=== PATIENT | female | born 1950 | race Hispanic/Latino ===

== ENCOUNTER → 2020-01-14 | Outpatient (CLI) | payer MEDICARE ==
[2020-01-14 15:36] LABS: BASOPHILS % 0.5 % (0.0-1.0); EOSINOPHILS # (AUTO) 0.1 (0.0-0.4); HEMOGLOBIN 11.2 g/dL (12.0-16.0); LYMPHOCYTES # (AUTO) 1.7 (1.0-3.2); MEAN CORPUSCULAR VOLUME 90.7 fL (81-99); MONOCYTES # (AUTO) 0.3 (0.2-0.8); MONOCYTES % 4.8 % (4.4-11.3); NEUTROPHILS # (AUTO) 4.5 (2.1-6.9); NEUTROPHILS % 67.4 % (38.7-80.0); PLATELET COUNT 252 x10e3/uL (140-360); RED BLOOD COUNT 3.86 x10e6/uL (3.6-5.1); RED CELL DISTRIBUTION WIDTH 13.4 % (11.7-14.4)
--- NOTE | 2020-01-14 15:45 | Diagnostic Imaging Report ---
EXAM: CHEST 2 VIEWS DATE: 01/14/2020 3:09 PM INDICATION: Cough COMPARISON: None FINDINGS: The trachea is midline. The lungs are symmetrically expanded without evidence for large focal consolidation, pneumothorax, or significant pleural effusion. The cardiomediastinal silhouette and pulmonary vasculature are within normal limits. Degenerative changes noted of the visualized spine. No acute osseous abnormality is identified. The surrounding soft tissues are unremarkable. IMPRESSION: No acute cardiopulmonary process identified. Signed by: Dr. Jourdan Foster MD on 01/14/2020 3:41 PM
== END ==
LOC: RAD 14:57
PROVIDERS: ATTEND Emergency Medicine
DX: R05 Cough (principal)
CPT/HCPCS: 36415; 71046; 83880; 85025

== ENCOUNTER → 2020-01-19 | Outpatient (CLI) | payer MEDICARE ==
--- NOTE | 2020-01-19 13:49 | Diagnostic Imaging Report ---
EXAM: BONE MINERAL DENSITY HISTORY: Screening COMPARISON: None DISCUSSION: Evaluation of the left hip and lumbar spine was performed utilizing DEXA Hologic bone densitometer. The study is technically adequate. The patient's fracture risk is compared to an age-matched control. The patient denies prior surgery/fracture of the spine, hips or forearm. Left hip femoral neck bone mineral density: 0.712 g/cm2, T-score is -1.4, Z-score is 0.2. Left hip total bone mineral density: 0.756 g/cm2, T-score is -1.5, Z-score is -0.3. Lumbar spine total bone mineral density: 0.832 gm/cm2, T-score is -2, Z-score is 0. Impression: Bone mineralization by WHO Classification is osteopenia, the fracture risk is increased. The estimated 10 year risk of a major osteoporotic fracture is calculated as 16%. Signed by: Jin Carey MD on 01/19/2020 1:45 PM
== END ==
LOC: DX 13:02
PROVIDERS: ATTEND Emergency Medicine
DX: M85.9 Disorder of bone density and structure, unspecified (principal); M85.88 Other specified disorders of bone density and structure, other site
CPT/HCPCS: 77080

== ENCOUNTER → 2022-07-13 | Outpatient (CLI) | payer MEDICARE | LOC: RAD 11:25 | PROVIDERS: ATTEND Emergency Medicine | DX: R07.9 Chest pain, unspecified (principal); J40 Bronchitis, not specified as acute or chronic | CPT/HCPCS: 71046; 71101 ==

== ENCOUNTER → 2023-07-17 | Outpatient (REF) | payer MEDICARE | LOC: CT 15:29 | PROVIDERS: ATTEND Internal Medicine | DX: R06.2 Wheezing (principal); R06.00 Dyspnea, unspecified | CPT/HCPCS: 71250 ==